=== PATIENT | female | born 1975 | race African-American/Black ===

== ENCOUNTER 2019-05-11 15:30 | Inpatient (IN) ==
--- NOTE | 2019-05-11 16:12 | PROVIDER DOCUMENTATION ---
HPI-General Adult - General Chief Complaint: Extremity Pain Stated Complaint: LEFT EXTREMITY SWELLING Time Seen by Provider: 05/11/19 15:40 Source: patient Home Medications: Home Medication List Medication Instructions Recorded Confirmed Last Taken Type Amlodipine [Norvasc] 10 mg PO DAILY #30 tablet 05/28/17 Unknown Rx Clonidine HCl 0.1 mg PO TID PRN #60 tablet 05/28/17 Unknown Rx Lisinopril/Hydrochlorothiazide 1 each PO DAILY #30 tablet 05/28/17 Unknown Rx [Lisinopril-Hctz 20-25 mg Tab] - History of Present Illness -Gen Adult Nature of Presenting Problems: [id number] presents today c/o severe left leg pain states she knows its cellulitis because she has had it 40 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 She has had multiple admissions for IV antibiotics and had to sent home on IV antibiotics. The pain started today at work at about 1330 she describes it as a throbbing pain. Patient is nontoxic in appearance. Temp was noted to 102 t wanda. Patient denies any prior fever, chills, vomiting, dyspnea, or diarrhea. Patient states she has chronic nausea and constipation. 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 denies: sinus problem, throat pain Cardiovascular: reports: no symptoms reported. denies: chest pain Respiratory: reports: no symptoms reported. denies: cough, dyspnea on exertion, shortness of breath Gastrointestinal: reports: constipation (chronic), nausea (chronic). denies: abdominal pain, vomiting Genitourinary: reports: no symptoms reported Musculoskeletal: reports: no symptoms reported Integumentary: reports: no symptoms reported Neurological: reports: no symptoms reported Psychiatric: reports: no symptoms reported Endocrine: reports: no symptoms reported Hematologic/Lymphatic: reports: lymphedema Allergic/Immunologic: reports: no symptoms reported All Other Systems: Reviewed and Negative Past History - Adult - PAST MEDICAL HISTORY-ADULT Review of Records: reports: Old Records Reviewed, Nursing Assessment Review, Medications Reviewed, Social history reviewed & non-contributory. Major Childhood Illnesses: reports: denies history Cardiovascular: reports: HTN Respiratory: reports: denies history Gastrointestinal: reports: GERD Obstetrical/Gynecological: reports: denies history Genitourinary: reports: denies history Musculoskeletal: reports: denies history Neurological: reports: denies history Psychiatric: reports: denies history Endocrine/Immune: reports: denies history Other Conditions: reports: denies history, other (lymphadema with chronic cellulitis) - PRIOR SURGERIES/PROCEDURES Surgical/Procedure History: reports: hysterectomy, other (breast reduction) - IMMUNIZATION STATUS Childhood Immunizations: See Nurse Assessment Flu Vaccine: See Nurse Assessment - FAMILY HISTORY Family History: reviewed, not pertinent - SOCIAL HISTORY Smoking: denies Substance Use: denies Alcohol Use Frequency: occasionally Living Situation: family Physical Exam-General - PHYSICAL EXAM-ADULT Initial Vital Signs Reviewed: Yes - CONSTITUTIONAL General Appearance: appears well, alert, no apparent distress - EYES Eyes: PERRL/EOMI, pink conjunctivae - HEAD, EARS, NOSE, MOUTH & THROAT HENMT: normocephalic/atraumatic, moist mucous membranes, normal ENT inspection - NECK Neck: non-tender, full range of motion, supple, normal inspection - RESPIRATORY Respiratory: chest non-tender, lungs clear, normal breath sounds, no pleuratic chest pain, no respiratory distress, no accessory muscle use - CARDIOVASCULAR Cardiovascular: normal peripheral pulses, regular rate, rhythm, no edema - GASTROINTESTINAL (ABDOMEN) Abdominal Exam: normal bowel sounds, non tender, soft - LYMPHATIC Lymphatic: no adenopathy - MUSCULOSKELETAL Extremity: normal range of motion, pedal edema, other (lymphadema to bilateral lower extremities) Peripheral Pulses: radial (R): 2+, radial (L): 2+, dorsalis-pedis (R): 1+, dorsalis-pedis (L): 1+ - SKIN Integumentary: normal color, warm/dry, tenderness (to left leg) - NEUROLOGIC Neurologic: grossly normal - PSYCHIATRIC Psych/Mental Status: normal thought content, oriented x 3 Progress - PLAN OF CARE/RESULTS Progress/Plan/Lab Results: Vital Signs - 8 hr 05/11/19 15:34 Temperature 102.0 F H Pulse Rate 115 H Respiratory Rate 16 Blood Pressure 168/89 O2 Sat by Pulse Oximetry 98 Orders Category Date Time Status NEWS Score 2-4:Order NEWS Lactate Series NOW Care 05/11/19 15:37 Active LACTATE, PLASMA [CHEM] Q3H Lab 05/11/19 15:45 Uncollected LACTATE, PLASMA [CHEM] Q3H Lab 05/11/19 18:45 Uncollected LACTATE, PLASMA [CHEM] Q3H Lab 05/11/19 21:45 Uncollected Patient agrees with POC rendered today. Result Diagrams: 05/11/19 16:05 - CONSULTS/PCP/HOSPITALIST Notification #1 *Consult/PCP/Hospitalist*: Dr. Girard Time Discussed: 16:56 Consult Disposition: Admit Departure - Departure Date of Disposition Decision: 05/11/19 Time of Disposition Decision: 16:56 DIAGNOSIS: Cellulitis Qualifiers: Site of cellulitis: extremity Site of cellulitis of extremity: lower extremity Laterality: left Qualified Code(s): L03.116 - Cellulitis of left lower limb Disposition: ADMITTED INPATIENT 09 Certified Medical Emergency: Emergent Condition: Stable Referrals and Follow-Ups: Simi Gallardo MD [Primary Care Provider] - - Critical Care Note This patient required my direct & personal management of CC.: No Attestation - Physician/ AZIZA Attestation Patient care was provided by Advanced Practice Provider:: Yes Advanced Practice Provider:: Kristen Gongora Advanced Practice Provider documentation review:: The Mid-level provider documentation, treatment plan and medical decision making was reviewed by the physician who agrees with all treatment and medical decision making by the P. The physician spent face to face time with patient:: No Advanced Practice Provider documentation review:: Supervising physician onsite and consulted in the evaluation and care of this patient. The physician did not have a face to face encounter with the patient.
[2019-05-11] MEDS ORDERED: ZOFRAN ODT PO ONE (16:35)
[2019-05-11] MEDS ORDERED: NORCO-10 PO ONE (16:35)
[2019-05-11 16:38] LABS: BASO# 0.03 X1000 (0.0-0.2); BASO% 0.2 % (0.0-0.8); EOS# 0.12 X1000 (0.0-0.7); HEMATOCRIT 43.2 % (37.0-47.0); HEMOGLOBIN 13.6 g/dL (12.0-16.0); IMM GRAN# 0.02 X1000 (0.0-0.04); IMM GRAN% 0.2 % (0.0-0.5); LYMPH# 2.16 X1000 (1.2-3.4); LYMPH% 17.1 % (20.5-51.1); MCH 26.1 PG (27-31); MCHC 31.5 g/dL (33-37); MCV 82.8 FL (81-99); MONO# 0.55 X1000 (0.11-0.59); MONO% 4.4 % (1.7-9.3); MPV 10.8 FL (7.4-10.4); NEUT# 9.72 X1000 (1.4-6.5); NEUT% 77.1 % (42.2-75.2); PLT 287 X1000 (130-400); RBC 5.22 XMIL (4.2-5.4)
[2019-05-11 16:54] LABS: INR 0.87; PROTIME 12.3 Seconds (11.0-16.0)
[2019-05-11] MEDS ORDERED: NS 1,000 ML IV ONE ×2 (16:58→17:02)
[2019-05-11 16:59] LABS: AGAP 14; ALBUMIN 4.4 g/dL (3.5-5.0); ALKALINE PHOSPHATASE 80 U/L (32-104); BUN 15 mg/dL (8-22); CALCIUM 9.7 mg/dL (8.8-10.2); CHLORIDE 102 mmol/L (98-107); COSMO 287; CREATININE 0.8 mg/dL (0.5-0.9); ESTIMATED GFR > 60; GLUCOSE 92 mg/dL (70-104); GOT 67 U/L (10-30); GPT 80 U/L (10-36); POTASSIUM 3.8 mmol/L (3.5-5.1); SODIUM 144 mmol/L (136-145); TCO2 28 mmol/L (25-35); TOTAL PROTEIN 8.3 g/dL (6.3-8.3)
[2019-05-11] MEDS ORDERED: VANCOMYCIN IV PER PHARMACY MISC SCH ×2 (17:15)
[2019-05-11 17:44] LABS: SED RATE 20 mm/hr (0-20)
[2019-05-11] MEDS ORDERED: MORPHINE IV ONE (18:14)
[2019-05-11] MEDS ORDERED: MORPHINE ONE (18:16)
[2019-05-11] MEDS ORDERED: TYLENOL PO ONE (18:24)
[2019-05-11] MEDS: ROCEPHIN 1 GM in NS 50 ML IV SCH (18:32)
--- NOTE | 2019-05-11 18:48 | Diag Imaging Result Doc PS360 ---
EXAM: CHEST-PORTABLE INDICATION: fever TECHNIQUE: One view COMPARISON: None. FINDINGS: Inspiration is suboptimal. There is a small linear density at the left lung apex likely representing scarring or possibly atelectasis. The lungs are grossly clear, otherwise. There is no discrete pleural fluid collection or pneumothorax. The cardiomediastinal silhouette and central vasculature are grossly unremarkable. IMPRESSION: Linear density at the left lung apex likely representing scarring or possibly atelectasis. Otherwise, no definite acute pathology by plain radiograph. Electronically signed by Juan Guido 05/11/2019 6:46 PM
[2019-05-11] MEDS: VANCOMYCIN 1 GM/NS 1 GM/250 ML IVPB IV SCH ×2 (20:00→21:39)
[2019-05-11] MEDS ORDERED: MOTRIN ONE (20:27)
[2019-05-11] MEDS ORDERED: MOTRIN PO ONE (20:28)
[2019-05-11] MEDS: NS 1,000 ML IV SCH (21:24)
[2019-05-11] MEDS: NORCO-10 PO PRN (21:39)
[2019-05-11 22:01] LABS: URINE SOURCE CLEAN CATCH
[2019-05-11 22:05] LABS: BILIRUBIN URINE NEGATIVE (NEGATIVE); BLOOD URINE SMALL (NEGATIVE); COLOR YELLOW; GLUCOSE URINE NEGATIVE (NEGATIVE); KETONE URINE NEGATIVE (NEGATIVE); LEUKOCYTES URINE NEGATIVE (NEGATIVE); NITRITE URINE NEGATIVE (NEGATIVE); PH URINE 5.5; PROTEIN URINE NEGATIVE (NEGATIVE); TURBIDITY URINE CLEAR (CLEAR); UROBILINOGEN URINE NORMAL (NORMAL)
[2019-05-11 22:12] LABS: UR EPITHELIAL CELLS <10 /HPF (<10); URINE BACTERIA NEGATIVE /HPF; URINE CASTS NONE SEEN; URINE CRYSTALS NONE SEEN; URINE RBC <10 /HPF (<10); URINE SMALL ROUND CELLS NONE SEEN; URINE WBC <10 /HPF (<10); URINE YEAST NONE SEEN
[2019-05-11] MEDS: ZOFRAN ODT PO PRN (22:29)
[2019-05-12] MEDS: NORCO-10 PO PRN ×3 (02:09→20:38)
[2019-05-12] MEDS: NS 1,000 ML IV SCH (04:31)
[2019-05-12 06:03] LABS: AGAP 13; ALBUMIN 3.7 g/dL (3.5-5.0); ALKALINE PHOSPHATASE 60 U/L (32-104); BUN 14 mg/dL (8-22); CALCIUM 8.4 mg/dL (8.8-10.2); CHLORIDE 100 mmol/L (98-107); COSMO 279; CREATININE 0.9 mg/dL (0.5-0.9); ESTIMATED GFR > 60; GLUCOSE 114 mg/dL (70-104); GOT 37 U/L (10-30); GPT 60 U/L (10-36); MAGNESIUM 1.6 mg/dL (1.5-2.7); POTASSIUM 3.8 mmol/L (3.5-5.1); SODIUM 139 mmol/L (136-145); TCO2 26 mmol/L (25-35)
[2019-05-12 06:04] LABS: HEMATOCRIT 38.8 % (37.0-47.0); MCH 26.1 PG (27-31); MCHC 30.9 g/dL (33-37); MCV 84.3 FL (81-99); MPV 10.4 FL (7.4-10.4); RBC 4.6 XMIL (4.2-5.4); RDW 15.3 % (11.5-14.5); WBC 20.7 X1000 (4.8-10.8)
[2019-05-12] MEDS: LOVENOX SUBQ SCH (08:09)
[2019-05-12] MEDS: VANCOMYCIN 2,000 MG in NS 500 ML IV SCH ×2 (08:09→20:39)
[2019-05-12] MEDS: MORPHINE IV PRN ×2 (11:05→15:36)
[2019-05-12] MEDS: TYLENOL PO PRN (14:56)
[2019-05-12] MEDS: ROCEPHIN 1 GM in NS 50 ML IV SCH (18:19)
--- NOTE | 2019-05-12 22:44 | PROGRESS NOTE ---
DATE: 05/12/2019 SUBJECTIVE: Patient states her leg still hurts extremely bad. In fact, it is rather significant pain as she starts screaming before I was able to touch her left lower extremity. OBJECTIVE: Vital signs: Temperature 98 degrees, pulse 90, respiratory rate 18, BP 118/59. General: Patient is awake, pleasant. She is in no respiratory distress. HEENT: Normocephalic. Neck: Supple. Cardiovascular: Regular rate. Chest: Clear. Abdomen: Soft, obese, nondistended. Extremities: Moves all extremities. Unable to truly assess her left lower extremity as she started screaming before I was able to even begin to touch her leg near her ankle. ASSESSMENT: 1. Leukocytosis. White count is at 20. She has had no further fever. 2. Elevated lactate that is resolved. 3. Normal D-dimer. 4. Morbid obesity. 5. Undetermined origin of pain of left lower extremity. PLAN: We are going to continue patient in the hospital, continue fluid, pain control, and we will follow. cc: Ángel Girard MD
--- NOTE | 2019-05-13 02:54 | HISTORY AND PHYSICAL ---
CHIEF COMPLAINT: Left lower extremity pain. HISTORY OF PRESENT ILLNESS: Patient is a 43-year-old female who presented to the ER with complaints of left lower extremity pain. Notes that she has had cellulitis over 40 times in her left leg. Notes she has a history of lymphedema. States she does not currently have redness, but she knows it is going to start soon. States she typically gets pain severe in her leg before the infection starts. ALLERGIES: No known drug allergies. MEDICATIONS: Norvasc, clonidine, lisinopril/hydrochlorothiazide 20/25. PAST MEDICAL HISTORY: Hypertension, GERD, morbid obesity, lymphedema with history of chronic cellulitis. SURGICAL HISTORY: She has had a hysterectomy and breast reduction. REVIEW OF SYSTEMS: States she has chronic constipation, chronic nausea, chronic pain in her lower extremity. Denies any fevers, chills, dysuria, urinary frequency, urgency, constipation, melena or hematochezia currently. FAMILY HISTORY: Noncontributory. SOCIAL HISTORY: She does not smoke or drink. She is employed. PHYSICAL EXAMINATION: VITAL SIGNS: Reviewed. Temperature 102 degrees, pulse 115, respiratory 16, BP 168/89, saturating 98% on room air. GENERAL: Patient is awake, pleasant, currently in no respiratory distress. She does appear to be in severe pain, however. HEENT: Normocephalic. NECK: Supple. CARDIOVASCULAR: Regular rate. CHEST: Clear and unlabored. ABDOMEN: Soft, obese, nondistended. EXTREMITIES: Moves all extremities although has significant pain on her left lower extremity. NEUROLOGIC: No focal changes. SKIN: Warm and dry. No rashes. ASSESSMENT: 1. Mild leukocytosis. White count of 12. 2. Febrile illness with a temperature of 102 degrees. 3. Lymphedema with no signs or symptoms currently of infection. 4. Morbid obesity. 5. Hypertension. PLAN: We are going to admit patient to the hospital, place her on antibiotics. We will follow her extremity pain. D-dimer is currently pending. Further orders as needed. cc: Ángel Girard MD
[2019-05-13] MEDS: NORCO-10 PO PRN ×2 (03:06→22:12)
[2019-05-13 05:49] LABS: HEMATOCRIT 37.1 % (37.0-47.0); HEMOGLOBIN 11.4 g/dL (12.0-16.0); MCH 25.7 PG (27-31); MCHC 30.7 g/dL (33-37); MCV 83.6 FL (81-99); MPV 10.6 FL (7.4-10.4); RBC 4.44 XMIL (4.2-5.4); RDW 15.5 % (11.5-14.5); WBC 21.51 X1000 (4.8-10.8)
[2019-05-13] MEDS: TYLENOL PO PRN ×3 (06:09→22:12)
[2019-05-13 06:10] LABS: AGAP 13; ALBUMIN 3.1 g/dL (3.5-5.0); ALKALINE PHOSPHATASE 64 U/L (32-104); BUN 9 mg/dL (8-22); CALCIUM 8.8 mg/dL (8.8-10.2); CHLORIDE 102 mmol/L (98-107); COSMO 276; CREATININE 0.9 mg/dL (0.5-0.9); ESTIMATED GFR > 60; GLUCOSE 124 mg/dL (70-104); GOT 25 U/L (10-30); GPT 49 U/L (10-36); MAGNESIUM 1.7 mg/dL (1.5-2.7); POTASSIUM 3.4 mmol/L (3.5-5.1); SODIUM 138 mmol/L (136-145); TCO2 23 mmol/L (25-35); TOTAL PROTEIN 6.8 g/dL (6.3-8.3)
[2019-05-13] MEDS: MORPHINE IV PRN ×4 (06:13→20:25)
[2019-05-13] MEDS: VANCOMYCIN 2,000 MG in NS 500 ML IV SCH ×2 (09:36→20:22)
[2019-05-13] MEDS: ZOFRAN ODT PO PRN (09:36)
[2019-05-13] MEDS: LOVENOX SUBQ SCH (09:36)
[2019-05-13] MEDS: ROCEPHIN 1 GM in NS 50 ML IV SCH (18:36)
[2019-05-13] MEDS ORDERED: NS 50 ML IV SCH (23:00)
[2019-05-13] MEDS ORDERED: INVANZ IV SCH (23:15)
[2019-05-14] MEDS: INVANZ 1 GM/NS 1 GM/50 ML IVPB IV SCH (00:06)
[2019-05-14] MEDS: MORPHINE IV PRN ×5 (00:06→20:13)
--- NOTE | 2019-05-14 00:34 | PROGRESS NOTE ---
DATE: 05/13/2019 SUBJECTIVE: Patient notes that her left leg is continuing to hurt. Denies any redness to the leg currently. Denies any fevers. Denies any chest pain, palpitations. Denies cough, congestion. Denies GI or issues. OBJECTIVE: Vital Signs: T-max 101.6 degrees, pulse 116, respiratory 20, BP 111/53. General: Patient is awake, obese female who is in no respiratory distress, but is ill appearing any time she attempts to move her left leg or have her leg touched. HEENT: Normocephalic. Neck: Supple. Cardiovascular: Regular rate. Chest: Clear. Abdomen: Soft, obese, nondistended. Extremities: Moves all extremities. Skin: Unable to fully assess her left leg as it is exquisitely tender with any manipulation. Does not appear red, does not appear warm to the touch. ASSESSMENT: 1. Leukocytosis. White count is actually elevated a little bit further today at 21. 2. Febrile illness. 3. Lymphedema. 4. Morbid obesity. 5. Hypertension. PLAN: We are going to continue patient in the hospital. Continue antibiotics. We are going to add ertapenem and we will follow. cc: Ángel Girard MD
[2019-05-14] MEDS: TYLENOL PO PRN ×2 (06:01→17:06)
[2019-05-14] MEDS: LOVENOX SUBQ SCH (08:12)
[2019-05-14] MEDS: VANCOMYCIN 2,000 MG in NS 500 ML IV SCH ×3 (08:12→20:14)
[2019-05-14] MEDS: PHENERGAN PO PRN ×2 (11:04→20:14)
[2019-05-15] MEDS: MORPHINE IV PRN ×6 (00:32→22:04)
[2019-05-15] MEDS: INVANZ 1 GM/NS 1 GM/50 ML IVPB IV SCH (00:33)
[2019-05-15 03:54] LABS: HEMATOCRIT 35.2 % (37.0-47.0); HEMOGLOBIN 10.8 g/dL (12.0-16.0); MCH 25.6 PG (27-31); MCHC 30.7 g/dL (33-37); MCV 83.4 FL (81-99); MPV 10.9 FL (7.4-10.4); RBC 4.22 XMIL (4.2-5.4); RDW 15.7 % (11.5-14.5); WBC 16.83 X1000 (4.8-10.8)
[2019-05-15] MEDS: PHENERGAN PO PRN ×5 (04:04→22:05)
[2019-05-15] MEDS: TYLENOL PO PRN ×3 (04:04→21:19)
[2019-05-15 04:14] LABS: AGAP 13; ALBUMIN 2.9 g/dL (3.5-5.0); ALKALINE PHOSPHATASE 75 U/L (32-104); BUN 6 mg/dL (8-22); CALCIUM 9.1 mg/dL (8.8-10.2); CHLORIDE 103 mmol/L (98-107); COSMO 281; CREATININE 0.7 mg/dL (0.5-0.9); ESTIMATED GFR > 60; GLUCOSE 108 mg/dL (70-104); GOT 17 U/L (10-30); GPT 32 U/L (10-36); POTASSIUM 3.5 mmol/L (3.5-5.1); SODIUM 142 mmol/L (136-145); TCO2 26 mmol/L (25-35); TOTAL PROTEIN 6.9 g/dL (6.3-8.3)
[2019-05-15] MEDS: LOVENOX SUBQ SCH (09:04)
[2019-05-15] MEDS: VANCOMYCIN 2,000 MG in NS 500 ML IV SCH ×2 (09:04→19:49)
[2019-05-15] MEDS ORDERED: NON-FORMULARY MED (Lisinopril/Hydrochlorothiazide [Lisinopril-Hctz 20-25 Mg Tab] 1 TAB) PO SCH (09:30)
--- NOTE | 2019-05-15 09:37 | PROGRESS NOTE ---
DATE: 05/14/2019 SUBJECTIVE: Patient notes her left lower extremity still hurts. It is swollen, has severe edema, hurts to move it. Did have a fever yesterday. OBJECTIVE: Vital Signs: T-max 101.3 degrees, pulse 114, respiratory 18, BP 142/92. General: Patient is awake, pleasant. She is in no current respiratory distress. Morbidly obese female who is lying in bed. HEENT: Normocephalic. Neck: Supple. Cardiovascular: Regular rate. Chest: Clear, nonlabored. Abdomen: Soft, obese, nondistended. Extremities: Moves all extremities. Skin: She does have erythema of her left ankle. She however admits pain from the ball of her foot to her hip. It is difficult to actually assess her legs as she started screaming before it is touched. ASSESSMENT: 1. Sepsis. 2. Leukocytosis. 3. Febrile illness. 4. Lymphedema. 5. Cellulitis lower extremity, left. 6. Morbid obesity. 7. Hypertension. PLAN: We will change her to ertapenem. We will continue vancomycin and we will follow. cc: Ángel Girard MD
[2019-05-15] MEDS: DIFLUCAN PO SCH (11:03)
[2019-05-15] MEDS: HYDROCHLOROTHIAZIDE PO SCH (11:03)
[2019-05-15] MEDS: BYSTOLIC PO SCH (11:03)
[2019-05-15] MEDS: PRINIVIL PO SCH (11:03)
[2019-05-15] MEDS: PRILOSEC PO SCH (11:03)
--- NOTE | 2019-05-15 11:08 | PROGRESS NOTE ---
DATE: 05/15/2019 SUBJECTIVE: Patient notes her leg still hurts. Denies any fevers, chills, cough, congestion. PHYSICAL EXAMINATION: T-max 101.4 degrees, pulse 108, respiratory rate 18, BP 180/100. General: The patient is morbidly obese. She is in no respiratory distress, lying in the bed. Does appear to be in pain. HEENT: Normocephalic. Neck: Supple. Cardiovascular: Regular rate. Chest: Clear. Abdomen: Soft, nondistended. Extremities: Moves all extremities. Skin: Noted to have less erythema of her left ankle area than she did yesterday. ASSESSMENT: 1. Cellulitis. 2. Lymphedema. 3. Leukocytosis. 4. Sepsis. 5. Febrile illness. 6. Morbid obesity. 7. Hypertension. PLAN: Her blood pressures are starting to stay elevated. She had some lower blood pressures when she first was admitted so we are going to continue to follow those blood pressures today and not start medications yet. We will follow. We will continue ertapenem and vancomycin. Her white count actually has improved slightly some today. cc: Ángel Girard MD
[2019-05-16] MEDS: INVANZ 1 GM/NS 1 GM/50 ML IVPB IV SCH (01:05)
[2019-05-16] MEDS: MORPHINE IV PRN ×5 (02:37→17:18)
[2019-05-16] MEDS: PHENERGAN PO PRN ×4 (02:38→23:13)
[2019-05-16] MEDS: TYLENOL PO PRN ×3 (03:14→18:41)
[2019-05-16] MEDS: PRILOSEC PO SCH (06:08)
[2019-05-16] MEDS: XARELTO PO SCH (06:08)
[2019-05-16] MEDS: DIFLUCAN PO SCH (08:49)
[2019-05-16] MEDS: VANCOMYCIN 1,800 MG in NS 500 ML IV SCH ×2 (08:49→18:41)
[2019-05-16] MEDS: HYDROCHLOROTHIAZIDE PO SCH (08:49)
[2019-05-16] MEDS: BYSTOLIC PO SCH (08:49)
[2019-05-16] MEDS: PRINIVIL PO SCH (08:49)
--- NOTE | 2019-05-16 19:33 | PROGRESS NOTE ---
DATE: 05/16/2019 SUBJECTIVE: The patient notes that her left thigh and left knee area have less pain. Still has significant pain in her left ankle, which is still erythematous. OBJECTIVE: Vital Signs: T-max 102 degrees, T-current 100.8, pulse 88, respiratory rate 18, BP 153/93. General: The patient is an awake, pleasant, obese female who is lying in the bed. She is in no respiratory distress. HEENT: Normocephalic. Neck: Supple. Cardiovascular: Regular rate. Chest: Clear. Abdomen: Soft, nondistended. Extremities: Moves all extremities. Skin: Still has erythema of her left ankle, although it does not appear to have progressed from what was previously marked 2 days ago. Also appears to be a little less red than it was and certainly not quite as warm. Has much less tenderness of her upper thigh and mid leg than she did previously. ASSESSMENT: 1. Leukocytosis. White count is improved. 2. Hypokalemia. 3. Cellulitis, left lower extremity. 4. Chronic lymphedema. 5. Obesity. 6. Hypertension. PLAN: We are going to continue the patient in the hospital. Continue to follow her for sepsis. She currently is on ertapenem and vancomycin. May need to adjust this if she continues to have fever. Further orders as needed. cc: Ángel Girard MD
[2019-05-16] MEDS: NORCO-10 PO PRN (23:13)
[2019-05-17] MEDS: VANCOMYCIN 1,800 MG in NS 500 ML IV SCH ×3 (00:09→14:49)
[2019-05-17] MEDS: PHENERGAN PO PRN ×2 (02:51→12:18)
[2019-05-17] MEDS: MORPHINE IV PRN ×3 (02:51→11:48)
[2019-05-17] MEDS: TYLENOL PO PRN (03:56)
[2019-05-17] MEDS: XARELTO PO SCH (05:07)
[2019-05-17] MEDS: PRILOSEC PO SCH (06:24)
[2019-05-17 06:36] LABS: HEMATOCRIT 35.7 % (37.0-47.0); HEMOGLOBIN 11.1 g/dL (12.0-16.0); MCH 25.2 PG (27-31); MCHC 31.1 g/dL (33-37); MPV 10.2 FL (7.4-10.4); RBC 4.41 XMIL (4.2-5.4); RDW 15.3 % (11.5-14.5); WBC 15.22 X1000 (4.8-10.8)
[2019-05-17 07:12] LABS: AGAP 15; ALBUMIN 2.9 g/dL (3.5-5.0); ALKALINE PHOSPHATASE 79 U/L (32-104); BUN 11 mg/dL (8-22); CALCIUM 9.2 mg/dL (8.8-10.2); CHLORIDE 96 mmol/L (98-107); COSMO 277; CREATININE 0.8 mg/dL (0.5-0.9); ESTIMATED GFR > 60; GLUCOSE 101 mg/dL (70-104); GOT 20 U/L (10-30); GPT 26 U/L (10-36); POTASSIUM 3.3 mmol/L (3.5-5.1); SODIUM 139 mmol/L (136-145); TCO2 28 mmol/L (25-35); TOTAL PROTEIN 7.1 g/dL (6.3-8.3)
[2019-05-17] MEDS: INVANZ 1 GM/NS 1 GM/50 ML IVPB IV SCH (07:46)
[2019-05-17] MEDS: DIFLUCAN PO SCH ×2 (07:47→09:44)
[2019-05-17] MEDS: BYSTOLIC PO SCH ×2 (07:47→09:44)
[2019-05-17] MEDS: HYDROCHLOROTHIAZIDE PO SCH ×2 (07:47→09:45)
--- NOTE | 2019-05-17 07:48 | Diag Imaging Result Doc PS360 ---
EXAM: CHEST-PORTABLE HISTORY: dyspnea TECHNIQUE: Single view COMPARISON: 05/11/2019 FINDINGS: The lungs are well expanded. The heart is not enlarged. The vessels are not distended. There are no infiltrates. No effusion identified. IMPRESSION: Negative exam. Electronically signed by Sergio Martinez 05/17/2019 7:45 AM
[2019-05-17] MEDS: PRINIVIL PO SCH (09:00)
[2019-05-17] MEDS ORDERED: DOXYCYCLINE PO SCH (11:00)
[2019-05-17] MEDS ORDERED: LEVAQUIN PO SCH (11:00)
[2019-05-17] MEDS ORDERED: NS 250 ML ONE (11:47)
[2019-05-17] MEDS ORDERED: DILAUDID IM PRN (11:55)
[2019-05-17] MEDS ORDERED: PERCOCET-10 PO PRN (11:55)
[2019-05-17] MEDS ORDERED: FLEXERIL PO PRN (11:56)
[2019-05-17 12:16] LABS: INR 1.28; PROTIME 16.7 Seconds (11.0-16.0)
[2019-05-17] MEDS: AZACTAM 2 GM in NS 100 ML IV SCH ×3 (14:10→21:57)
[2019-05-17] MEDS: NORCO-10 PO PRN (14:10)
--- NOTE | 2019-05-17 14:21 | PROGRESS NOTE ---
DATE: 05/17/2019 SUBJECTIVE: Patient has no major complaints. OBJECTIVE: Vital Signs: Blood pressure is 143/89, heart rate of 77, respiratory rate of 20, 98 degrees, T-max though was 100.5 to 100.8. Cardiovascular: Regular rate and rhythm. Pulmonary: Bilateral breath sounds. Clear to auscultation. GI: Soft, nontender, nondistended. Bowel sounds are positive. LABORATORY DATA: White count 15. Hemoglobin 11 and hematocrit 35. Platelets 280,000. Potassium 3.3. PROBLEM LIST: 1. Cellulitis of the left lower extremity with bullous changes. We will continue antibiotics. She is on vancomycin. We will add some Levaquin but I think cefepime or Azactam may be in order. I went ahead and we ruptured one bulla just at the bedside with a scalpel and drained some of the fluid just for culture. Hopefully, that will give us some information. 2. We will continue to see how she is doing. I am going to go ahead and start some Lasix on her. We may also need to assist with that. 3. Chronic lymphedema. She will likely need regular treatment for that. DISPOSITION: Pending her clinical status, but is not improved, so we will continue treatment. We have gone ahead and placed a PICC in anticipation she will need home IV antibiotics. She has previously been treated with cefepime and vancomycin when she had the extensive cellulitis of her right leg. I am also going to get a surgical opinion and wound care to see about getting that situated. cc: Mehdi German MD
[2019-05-17] MEDS: LASIX PO SCH ×3 (14:48→19:32)
[2019-05-17] MEDS: DILAUDID IV PRN ×2 (16:29→20:54)
--- NOTE | 2019-05-17 17:36 | GENERAL SURGERY CONSULTATION ---
DATE: 05/17/2019 REASON FOR CONSULTATION: Cellulitis, question debridement and optimize wound care. HISTORY OF PRESENT ILLNESS: This is a 43-year-old female who began having pain in her left groin that progressed down her left leg 6 days ago. It is now concentrated in the leg below the knee, and especially on the calf and ankle area. It is constant, severe pain with associated redness, swelling, and blister formation with drainage. She had a fever up to 103 as well. This is similar to multiple episodes that she has had in both legs over many years. She has a history of lymphedema and severe cellulitis. She has previously had a worse episode on the right leg several years ago that was treated in [place]. It was treated with IV antibiotics for several months, and had leg elevation, compression and physical therapy to include manual compression massage, Xeroform and wraps, as well as lymphedema pumps. She quit going to therapy about 2 to 3 years ago and began working full-time. She still has compression hose, but she says they are worn out and not effective any more. She has not had any significant improvement since she was admitted to the hospital on this admission. Her pain is worse to movement or touch. She also endorses some nausea. PAST MEDICAL HISTORY: High blood pressure, lymphedema, cellulitis. PAST SURGICAL HISTORY: Hysterectomy, breast reduction. HOME MEDICATIONS: Norvasc, clonidine, lisinopril/hydrochlorothiazide. ALLERGIES: No known drug allergies. FAMILY HISTORY: Reviewed and noncontributory. 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 She denies tobacco or alcohol. REVIEW OF SYSTEMS: Ten systems reviewed and negative except as noted above. PHYSICAL EXAM: Vital Signs: Temperature 99.7, pulse 84, respirations 18, 140/90, 02 saturation 96%. General: Well-developed, well-nourished female in no distress who looks her stated age. HEENT: Normocephalic, atraumatic. Extraocular muscles intact. Pupils equal, round, reactive to light. Sclerae anicteric. Moist mucous membranes. Neck: Supple. No thyromegaly. CV: Regular rate and rhythm. Respiratory: Bilateral equal breath sounds. No work of breathing. GI: Obese, soft. No organomegaly or mass. Musculoskeletal: She moves her extremities, but the left leg is significantly limited due to pain. Extremities: Both legs have edema, but it is worse in the left leg below the knee. There is circumferential redness, brawny edema, significant tenderness and a blister on the posterior portion of the left calf with serous drainage. She has 2-second capillary refill on the left foot. Her left foot and leg are warm. LABORATORY: White blood cell count 15,000, hemoglobin 11.1, hematocrit 35.7. Electrolytes reviewed, unremarkable. ASSESSMENT AND PLAN: A 43-year-old female with severe cellulitis of the left leg with associated lymphedema and morbid obesity. I agree with your current antibiotics, specifically, Azactam and vancomycin. We are awaiting cultures from the fluid drained from her leg. Also recommend elevating the leg and medicated compression wraps with Unna boots to be changed every other day. At this time, I do not think she needs surgical debridement. We will follow the skin to see if that becomes necessary. When she is discharged, she will need to be referred to a physical therapist to resume lymphedema treatment. Jw Hare has had good success with this locally. cc: Wyatt García MD
[2019-05-17] MEDS: ZOFRAN IV PRN (20:53)
[2019-05-18] MEDS: ZOFRAN IV PRN ×2 (00:36→07:00)
[2019-05-18] MEDS: DILAUDID IV PRN ×7 (00:36→22:22)
[2019-05-18] MEDS: VANCOMYCIN 1,800 MG in NS 500 ML IV SCH ×2 (03:28→15:29)
[2019-05-18] MEDS: PHENERGAN PO PRN (03:29)
[2019-05-18 06:12] LABS: BASO# 0.17 X1000 (0.0-0.2); BASO% 1.1 % (0.0-0.8); EOS# 0.35 X1000 (0.0-0.7); EOS% 2.2 % (0.0-10.0); HEMATOCRIT 36.2 % (37.0-47.0); HEMOGLOBIN 11.4 g/dL (12.0-16.0); IMM GRAN# 0.44 X1000 (0.0-0.04); IMM GRAN% 2.8 % (0.0-0.5); LYMPH# 2.79 X1000 (1.2-3.4); LYMPH% 17.9 % (20.5-51.1); MCH 25.9 PG (27-31); MCHC 31.5 g/dL (33-37); MCV 82.1 FL (81-99); MONO# 0.92 X1000 (0.11-0.59); MONO% 5.9 % (1.7-9.3); MPV 10.4 FL (7.4-10.4); NEUT# 10.92 X1000 (1.4-6.5); NEUT% 70.1 % (42.2-75.2); PLT 281 X1000 (130-400); RBC 4.41 XMIL (4.2-5.4); RDW 15.2 % (11.5-14.5); WBC 15.59 X1000 (4.8-10.8)
[2019-05-18] MEDS: XARELTO PO SCH (06:18)
[2019-05-18] MEDS: PRILOSEC PO SCH (06:18)
[2019-05-18] MEDS: AZACTAM 2 GM in NS 100 ML IV SCH ×3 (06:18→22:21)
[2019-05-18 06:22] LABS: AGAP 13; BUN 11 mg/dL (8-22); CHLORIDE 97 mmol/L (98-107); COSMO 275; CREATININE 0.9 mg/dL (0.5-0.9); ESTIMATED GFR > 60; GLUCOSE 97 mg/dL (70-104); POTASSIUM 3.7 mmol/L (3.5-5.1); SODIUM 138 mmol/L (136-145); TCO2 29 mmol/L (25-35)
[2019-05-18 07:53] LABS: BANDS 2 % (0-1); LYMPHS 14 % (21-51); MONO 2 % (1-9); SEGS 82 % (42-75)
[2019-05-18] MEDS: LASIX PO SCH (10:43)
[2019-05-18] MEDS: BYSTOLIC PO SCH (10:43)
[2019-05-18] MEDS: PRINIVIL PO SCH (10:43)
[2019-05-18] MEDS: DIFLUCAN PO SCH (10:43)
--- NOTE | 2019-05-18 14:55 | PROGRESS NOTE ---
DATE: 05/18/2019 SUBJECTIVE: Ms. Lisa Ny is a 43-year-old female. She is in no acute distress. She has no complaints at this time. OBJECTIVE: Vital signs: Temperature 98.9 degrees, heart rate 78, respiratory rate 20, blood pressure 122/72, O2 saturation 95% on room air. General: Ms. Lisa Ny is a 43-year-old female. She is in no acute distress. HEENT: Atraumatic. Normocephalic. Pupils equal, round, reactive to light. Mucous membranes are moist. Cardiovascular: S1, S2. Regular rate and rhythm. No rubs, gallops, or murmurs. She has lower extremity edema probably about +3 versus morbid obesity. It is to the point she cannot feel her pulses, but feet are warm. Pulmonary: Clear to auscultate bilateral breath sounds. No accessory muscle use or work of breathing noted. She is tolerating room air. Gastrointestinal: Abdomen soft, nontender, nondistended. Positive bowel sounds x4. Extremities: Moves all extremities equally. Full range of motion. Left lower extremity is wrapped. LABORATORY DATA: White blood cells 15,000, hemoglobin 11, hematocrit 36, platelet count 281,000. Sodium 138, potassium 3.7, BUN 11, creatinine 0.9, glucose 97. IMAGING: She had a chest x-ray yesterday, it was a negative exam. ASSESSMENT AND PLAN: 1. Cellulitis of the left lower extremity with bullous changes. The bullous was opened. There was attempt for culture, so far it is negative. Blood cultures from the 2nd are also negative. She will be continued on aztreonam, Diflucan, vancomycin. General Surgery was consulted with recommendations elevating the leg, using medicated compression wraps and Unna boots to be changed every other day and they did not feel that there needed to be a surgical debridement. Wound Care is following. They saw her yesterday around 6:40 p.m. They cleaned the wounds with Vashe and wrapped it and placed an Unna boot. She still has the occasional temperature. The highest her temperature got was 99.7 over the last 24 hours. 2. Morbid obesity with lower extremity edema. She has been started on some Lasix. 3. Chronic lymphedema. 4. Hypertension. Continue on lisinopril and Bystolic. 5. Gastroesophageal reflux disease. Continue Prilosec. 6. Deep venous thrombosis prophylaxis, Xarelto. DISPOSITION: Home once white blood cell count starts to trend down and will likely go home with IV antibiotics. Dictated by MARIYA Mendoza for Mehdi German MD cc: MARIYA Mendoza MD
[2019-05-19] MEDS: DILAUDID IV PRN ×4 (01:41→11:01)
[2019-05-19] MEDS: VANCOMYCIN 1,800 MG in NS 500 ML IV SCH ×2 (04:02→14:55)
[2019-05-19 06:01] LABS: BASO# 0.07 X1000 (0.0-0.2); BASO% 0.5 % (0.0-0.8); EOS% 2.8 % (0.0-10.0); HEMATOCRIT 34.2 % (37.0-47.0); HEMOGLOBIN 10.5 g/dL (12.0-16.0); IMM GRAN# 0.24 X1000 (0.0-0.04); IMM GRAN% 1.7 % (0.0-0.5); MCH 25.6 PG (27-31); MCHC 30.7 g/dL (33-37); MCV 83.4 FL (81-99); MONO# 0.74 X1000 (0.11-0.59); MONO% 5.2 % (1.7-9.3); NEUT# 10.03 X1000 (1.4-6.5); NEUT% 70.8 % (42.2-75.2); PLT 300 X1000 (130-400); RDW 15.4 % (11.5-14.5); WBC 14.18 X1000 (4.8-10.8)
[2019-05-19 06:04] LABS: AGAP 11; BUN 11 mg/dL (8-22); CALCIUM 8.7 mg/dL (8.8-10.2); CHLORIDE 104 mmol/L (98-107); COSMO 279; CREATININE 0.8 mg/dL (0.5-0.9); ESTIMATED GFR > 60; GLUCOSE 101 mg/dL (70-104); POTASSIUM 3.8 mmol/L (3.5-5.1); SODIUM 140 mmol/L (136-145); TCO2 26 mmol/L (25-35)
[2019-05-19] MEDS: PRILOSEC PO SCH (06:27)
[2019-05-19] MEDS: XARELTO PO SCH (06:28)
[2019-05-19] MEDS: AZACTAM 2 GM in NS 100 ML IV SCH ×2 (06:28→13:37)
[2019-05-19 07:03] LABS: BANDS 1 % (0-1); LYMPHS 19 % (21-51); MONO 4 % (1-9); SEGS 76 % (42-75)
[2019-05-19] MEDS: LASIX PO SCH (08:25)
[2019-05-19] MEDS: DIFLUCAN PO SCH (08:25)
[2019-05-19] MEDS: PRINIVIL PO SCH (08:25)
[2019-05-19] MEDS: BYSTOLIC PO SCH (08:25)
--- NOTE | 2019-05-19 13:43 | DISCHARGE SUMMARY ---
ADMISSION DATE: 05/11/2019 DISCHARGE DATE: 05/19/2019 DISCHARGE DIAGNOSES: 1. Cellulitis of her left lower extremity. 2. Chronic lymphedema. CONSULTATION: Surgery. PROCEDURES: PICC line placement. BRIEF HISTORY AND HOSPITAL COURSE: Briefly, this is a 43-year-old female with chronic lymphedema, hypertension, presenting with pain in her left lower extremity. She has had cellulitis numerous times, mostly on the right. Her workup, she had fevers up to 102 degrees and pain. She was initially placed on antibiotics which I think was vancomycin and I think cefepime. She is on ertapenem. In any case, cultures were negative, blood cultures. I did drain a blister on the 7th which has still not grown out. At that point, she was on Azactam and vancomycin. Initially plans were made for daptomycin and cefepime but due to cost, we adjusted it down to Vancomycin and Rocephin. DISCHARGE CONDITION: Stable. She is afebrile. Blood pressure is stable. Her leg is in an Unna boot which will need to be changed q.72 hours. We will give her some pain medicine to go home with. DISCHARGE MEDICATIONS: Bystolic 10 daily, Flexeril p.r.n., lisinopril 20/25 daily. The vancomycin will be 1800 b.i.d. for 2 weeks and Rocephin 2 g IV daily for 2 weeks. We will have her follow up with Desirae Olivares, Infectious Disease Nurse Practitioner, as an outpatient and Dr. García for wound care management. Continue Unna boots for the time being. TIME SPENT: This is a 35 minute discharge. cc: Mehdi German MD
[2019-05-19 14:03] VITALS: BP 108/70
[2019-05-19] MEDS: NORCO-10 PO PRN (14:18)
== END 2019-05-19 17:22 | disposition home health service (06) | DRG 603 ==
LOC: P.ED 15:30 → SUATTDRO 19:45 → P.MEDSURG 19:45
PROVIDERS: ATTEND Internal Medicine